=== PATIENT | female | born 1970 | race Caucasian/White ===

== ENCOUNTER 2020-11-01 17:11 | Emergency (ER) | payer OTHER ==
[~2020-11-01] VITALS: Ht 167.6 cm; Wt 129.5 kg
[2020-11-01] MEDS ORDERED: CRUTCHES MC (18:40)
[2020-11-01 19:30] VITALS: BP 126/78; PULSE 88
== END 2020-11-01 19:30 | disposition home or self-care (01) ==
LOC: COL.ER 17:11
DX: S93.401A Sprain of unspecified ligament of right ankle, initial encounter (principal); S80.812A Abrasion, left lower leg, initial encounter; E66.01 Morbid (severe) obesity due to excess calories; Z68.42 Body mass index [BMI] 45.0-49.9, adult; W13.0XXA Fall from, out of or through balcony, initial encounter